=== PATIENT | male | born 1985 | race Caucasian/White ===

== ENCOUNTER 2017-09-16 22:45 | Emergency (ER) | payer OTHER ==
[~2017-09-16] VITALS: Ht 182.9 cm; Wt 66.2 kg
[~2017-09-16 22:45] MED LIST: CEPH500 PO; CYCL10 PO; Ciprodex Otic7.5 ML RIGHTEAR; HYDACE5 PO; HYDACE5325 PO; HYDR1TAB94 PO; IBUP600 PO; INDO25 PO; META800 PO; NAPR500 PO; Norco 5-325 Ta1 EACH PO; PENVK500 PO; RXHYD5325 PO; SULTRIDS PO; TRAM50 PO; Zofran Odt4 MG SL
== END 2017-09-17 00:21 | disposition home or self-care (01) ==
LOC: ER 22:45
DX: S80.862A Insect bite (nonvenomous), left lower leg, initial encounter (principal); H60.91 Unspecified otitis externa, right ear; F17.210 Nicotine dependence, cigarettes, uncomplicated; Z91.018 Allergy to other foods; Z88.8 Allergy status to other drugs, medicaments and biological substances; W57.XXXA Bitten or stung by nonvenomous insect and other nonvenomous arthropods, initial encounter
CPT/HCPCS: 99282

== ENCOUNTER 2022-11-10 21:31 | Emergency (ER) | payer OTHER ==
[~2022-11-10] VITALS: Ht 188 cm; Wt 67.6 kg
[2022-11-10 21:40] VITALS: BP 100/71
[2022-11-10] MEDS ORDERED: CYCL10 PO (22:22)
== END 2022-11-10 22:50 | disposition home or self-care (01) ==
LOC: ER 21:31
DX: M54.50 Low back pain, unspecified (principal); G89.29 Other chronic pain; Z88.8 Allergy status to other drugs, medicaments and biological substances; F17.210 Nicotine dependence, cigarettes, uncomplicated
CPT/HCPCS: A9270; J1885